=== PATIENT | male | born 1955 | race Caucasian/White ===

== ENCOUNTER 2018-06-26 05:23 | Inpatient (IN) ==
[2018-06-26] MEDS ORDERED: ceFAZolin 1,000 MG VIAL ONE (05:53)
[2018-06-26] MEDS ORDERED: VANCOMYCIN 1,000 MG VIAL ONE (05:53)
[2018-06-26] MEDS ORDERED: GABAPENTIN 400 MG CAPSULE PO ONE (06:19)
[2018-06-26] MEDS ORDERED: ACETAMINOPHEN 500 MG TABLET PO ONE (06:19)
[2018-06-26] MEDS ORDERED: ROPIVACAINE 0.5% 30 ML VIAL ONE ×2 (06:27→09:45)
[2018-06-26] MEDS ORDERED: BUPIVACAINE SPINAL 0.75% 2 ML AMP SPINAL ONE (06:27)
[2018-06-26] MEDS ORDERED: ceFAZolin 1,000 MG in SYRINGE 1 EACH IV ONE (06:30)
[2018-06-26] MEDS ORDERED: VANCOMYCIN INJ 1,000 MG in SODIUM CHLORIDE 0.9% 250 ML IV ONE (06:30)
[2018-06-26] MEDS: LACTATED RINGERS 1,000 ML IV SCH ×2 (06:35→09:36)
[2018-06-26] MEDS ORDERED: TRANEXAMIC ACID 1,000 MG/10 ML VIAL ONE (06:50)
[2018-06-26] MEDS ORDERED: LACTULOSE 20 GM/30 ML UDCUP PO PRN (07:09)
[2018-06-26] MEDS ORDERED: BISACODYL 10 MG SUPP RECTAL PRN (07:09)
[2018-06-26] MEDS ORDERED: PROMETHAZINE 25 MG/1 ML VIAL IM PRN (07:09)
[2018-06-26] MEDS ORDERED: ONDANSETRON 4 MG/2 ML VIAL IV PRN ×2 (07:09→08:54)
[2018-06-26] MEDS ORDERED: diphenhydrAMINE CAP 25 MG CAPSULE PO PRN (07:09)
[2018-06-26] MEDS ORDERED: TEMAZEPAM 7.5 MG CAPSULE PO PRN (07:09)
[2018-06-26] MEDS ORDERED: MAGNESIUM HYDROXIDE SUSP 30 ML UDCUP PO PRN (07:09)
[2018-06-26] MEDS ORDERED: ALBUTEROL 2.5 MG/3 ML NEB RESP TX PRN (07:12)
[2018-06-26] MEDS ORDERED: PROPOFOL 200 MG/20 ML VIAL IV ONE (08:51)
[2018-06-26] MEDS ORDERED: ePHEDrine 50 MG/ML AMP ONE (08:52)
[2018-06-26] MEDS ORDERED: KETOROLAC 30 MG/1 ML VIAL ONE (08:52)
[2018-06-26] MEDS ORDERED: ONDANSETRON 4 MG/2 ML VIAL ONE (08:52)
[2018-06-26] MEDS ORDERED: DEXAMETHASONE 4 MG/1 ML VIAL ONE ×2 (08:52→09:45)
[2018-06-26] MEDS ORDERED: SUFentanil 50 MCG/ML AMP ONE (08:52)
[2018-06-26] MEDS ORDERED: KETAMINE 500 MG/10 ML VIAL ONE (08:52)
[2018-06-26] MEDS ORDERED: NEOSTIGMINE 10 MG/10 ML VIAL ONE (08:53)
[2018-06-26] MEDS ORDERED: GLYCOPYRROLATE 0.4 MG/2 ML VIAL ONE (08:53)
[2018-06-26] MEDS ORDERED: ROCURONIUM 100 MG/10 ML VIAL IV ONE (08:53)
[2018-06-26] MEDS ORDERED: ETOMIDATE 40 MG/20 ML VIAL IV ONE (08:53)
[2018-06-26] MEDS ORDERED: SEVOFLURANE 1 UNIT/15 MINUTE INH ONE (08:53)
[2018-06-26] MEDS ORDERED: SODIUM CHLORIDE 0.9% 100 ML IV ONE (08:53)
[2018-06-26] MEDS: HYDROmorphone 2 MG/1 ML VIAL IV PRN ×4 (09:00→09:23)
[2018-06-26] MEDS ORDERED: FLUTICASONE UMECLIDIN VILANTER INH SCH (09:00)
[2018-06-26] MEDS: MORPHINE 4 MG/1 ML VIAL IV PRN ×3 (11:24→22:18)
[2018-06-26] MEDS: APIXABAN 5 MG TABLET PO SCH ×3 (13:42→21:20)
[2018-06-26] MEDS: DOCUSATE SODIUM 100 MG CAPSULE PO SCH ×2 (13:42→21:20)
[2018-06-26] MEDS: NICOTINE 21 MG/24 HR PATCH TRANSDERM SCH (13:53)
[2018-06-26] MEDS: BUDESONIDE/FORMOTEROL 160-4.5 INHALER 6 GM INH SCH ×2 (14:30→21:30)
[2018-06-26] MEDS: ceFAZolin 2,000 MG in PREMIX 1 EACH IV SCH ×2 (15:49→22:18)
[2018-06-26] MEDS ORDERED: PANTOPRAZOLE 40 MG VIAL IV PRN (17:21)
[2018-06-26] MEDS ORDERED: ALUMINUM/MAGNES/SIMETH MAX STR 30 ML UDCUP PO PRN (17:25)
[2018-06-26] MEDS: GABAPENTIN 400 MG CAPSULE PO SCH (21:19)
[2018-06-26] MEDS: ROSUVASTATIN 20 MG TABLET PO SCH (21:28)
[2018-06-27] MEDS: MORPHINE 4 MG/1 ML VIAL IV PRN ×5 (05:14→20:22)
[2018-06-27 05:58] LABS: Basophils % 0.1 % (0.0-0.8); Hematocrit 32.5 VOL% (42.0-52.0); Hemoglobin 11.1 GM/DL (14.0-18.0); Immature Granulocytes % 0.6 %; Immature Granulocytes Absolute 0.09 #; Lymphocytes # 1.2 10*3/uL (1.4-4.0); Mean Corpuscular HGB Conc 34.2 GM/DL (32-36); Mean Corpuscular Volume 100.3 FL (87-102); Mean Platelet Volume 11.1 FL (9.6-12.0); Monocytes % 5.5 % (1.7-12.7); Neutrophils % 85.8 % (38.7-73.9); Platelet Count 126 T/CUMM (130-400); Red Blood Count 3.24 MC/CUMM (3.8-5.5); Red Cell Distribution Width 13.2 % (9.3-17.3); White Blood Count 15.6 T/CUMM (4-12)
[2018-06-27 06:20] LABS: Calcium 8.5 MG/DL (8.5-10.1); Osmolality,Calculated 279.7 MOS/KG (273-304)
[2018-06-27] MEDS: NICOTINE 21 MG/24 HR PATCH TRANSDERM SCH (08:29)
[2018-06-27] MEDS: DOCUSATE SODIUM 100 MG CAPSULE PO SCH ×2 (08:31→20:17)
[2018-06-27] MEDS: APIXABAN 5 MG TABLET PO SCH ×2 (08:31→20:18)
[2018-06-27] MEDS: BUDESONIDE/FORMOTEROL 160-4.5 INHALER 6 GM INH SCH ×2 (08:43→23:08)
[2018-06-27] MEDS: GABAPENTIN 400 MG CAPSULE PO SCH (20:17)
[2018-06-27] MEDS: ROSUVASTATIN 20 MG TABLET PO SCH (20:18)
[2018-06-28] MEDS: MORPHINE 4 MG/1 ML VIAL IV PRN ×6 (00:36→21:58)
[2018-06-28] MEDS: NICOTINE 21 MG/24 HR PATCH TRANSDERM SCH (09:38)
[2018-06-28] MEDS: DOCUSATE SODIUM 100 MG CAPSULE PO SCH ×2 (09:39→21:41)
[2018-06-28] MEDS: APIXABAN 5 MG TABLET PO SCH ×2 (09:39→21:42)
[2018-06-28] MEDS: BUDESONIDE/FORMOTEROL 160-4.5 INHALER 6 GM INH SCH ×2 (09:45→21:44)
[2018-06-28] MEDS: ROSUVASTATIN 20 MG TABLET PO SCH (21:40)
[2018-06-28] MEDS: GABAPENTIN 400 MG CAPSULE PO SCH (21:41)
[2018-06-29] MEDS: DOCUSATE SODIUM 100 MG CAPSULE PO SCH (09:18)
[2018-06-29] MEDS: APIXABAN 5 MG TABLET PO SCH (09:18)
[2018-06-29] MEDS: NICOTINE 21 MG/24 HR PATCH TRANSDERM SCH (09:18)
[2018-06-29] MEDS: BUDESONIDE/FORMOTEROL 160-4.5 INHALER 6 GM INH SCH (09:19)
[2018-06-29 11:50] VITALS: BP 162/84
== END 2018-06-29 13:20 | disposition home or self-care (01) | DRG 302 ==
LOC: N.OR 05:23 → N.SDSINP 05:24 → N.3E 10:24
PROVIDERS: ADMIT Orthopaedic Surgery; ATTEND Orthopaedic Surgery

== ENCOUNTER 2020-09-06 14:39 | Inpatient (IN) ==
[2020-09-06 15:41] LABS: Basophils # 0.1 10*3/uL (0.0-0.2); Basophils % 0.5 % (0.0-0.8); Eosinophils # 0.5 10*3/uL (0.0-0.87); Eosinophils % 4.2 % (0.00-10.9); Hematocrit 40.8 VOL% (42.0-52.0); Hemoglobin 14.1 GM/DL (14.0-18.0); Immature Granulocytes % 0.4 %; Immature Granulocytes Absolute 0.04 #; Lymphocytes # 2.2 10*3/uL (1.4-4.0); Lymphocytes % 20.3 % (21.2-54.2); Mean Corpuscular HGB Conc 34.6 GM/DL (32-36); Mean Corpuscular Volume 98.1 FL (87-102); Mean Platelet Volume 10.8 FL (9.6-12.0); Monocytes % 6.6 % (1.7-12.7); Platelet Count 200 T/CUMM (130-400); Red Blood Count 4.16 MC/CUMM (3.8-5.5); Red Cell Distribution Width 13.8 % (9.3-17.3)
[2020-09-06 15:46] LABS: Albumin 3.8 G/DL (3.4-5.0); Bilirubin,Total 0.8 MG/DL (0.20-1.00); Calcium 9.7 MG/DL (8.5-10.1); Osmolality,Calculated 275.1 MOS/KG (273-304); Total Protein 8.1 G/DL (6.4-8.2)
[2020-09-06] MEDS ORDERED: ONDANSETRON 4 MG/2 ML VIAL IV STA (15:49)
[2020-09-06] MEDS ORDERED: HYDROmorphone 2 MG/1 ML VIAL IV STA (15:49)
[2020-09-06 16:31] LABS: Bilirubin,Urine Negative (Negative); Blood, Urine Negative (Negative); Glucose,Urine (UA) Negative (Negative); Hyaline Casts,Urine 1 /LPF (0-3); Ketones,Urine Negative (Negative); Mucus,Urine Occasional /LPF (Occasional); Nitrite,Urine Negative (Negative); Protein,Urine Negative; RBC,Urine 1 /HPF (0-4); Urine Appearance CLEAR (Clear); Urine Color Yellow (Yellow); Urine Specific Gravity 1.023 (1.001-1.035)
[2020-09-06] MEDS ORDERED: GLUCAGON 1 MG VIAL IM PRN (17:08)
[2020-09-06] MEDS ORDERED: guaiFENesin/DM ER 600-30 MG TABLET PO PRN (17:08)
[2020-09-06] MEDS ORDERED: DEXTROSE 50% 25 GM/50 ML VIAL IV PRN (17:08)
[2020-09-06] MEDS ORDERED: DOCUSATE SODIUM 100 MG CAPSULE PO PRN (17:08)
[2020-09-06] MEDS ORDERED: ACETAMINOPHEN 325 MG TABLET PO PRN (17:08)
[2020-09-06] MEDS ORDERED: ALBUTEROL 2.5 MG/3 ML NEB RESP TX PRN (17:08)
[2020-09-06] MEDS ORDERED: hydrALAZINE 20 MG/1 ML VIAL IV PRN (17:08)
[2020-09-06] MEDS ORDERED: NICOTINE 21 MG/24 HR PATCH TRANSDERM PRN (17:17)
[2020-09-06] MEDS: SODIUM CHLORIDE 0.9% 1,000 ML IV SCH (18:00)
[2020-09-06] MEDS: HYDROmorphone 2 MG/1 ML VIAL IV PRN ×2 (18:00→23:00)
[2020-09-06] MEDS: ONDANSETRON 4 MG/2 ML VIAL IV PRN (19:00)
[2020-09-06] MEDS: GABAPENTIN 400 MG CAPSULE PO PRN (20:46)
[2020-09-06] MEDS: TAMSULOSIN 0.4 MG CAPSULE PO SCH (20:46)
[2020-09-06] MEDS: ENOXAPARIN 40 MG/0.4 ML SYRINGE SUBCUT SCH (20:47)
[2020-09-07 05:08] LABS: Basophils # 0.1 10*3/uL (0.0-0.2); Basophils % 0.7 % (0.0-0.8); Eosinophils # 0.6 10*3/uL (0.0-0.87); Hematocrit 38.1 VOL% (42.0-52.0); Hemoglobin 13.2 GM/DL (14.0-18.0); Immature Granulocytes % 0.5 %; Immature Granulocytes Absolute 0.04 #; Lymphocytes # 2.1 10*3/uL (1.4-4.0); Lymphocytes % 24.6 % (21.2-54.2); Mean Corpuscular HGB Conc 34.6 GM/DL (32-36); Mean Corpuscular Volume 99.2 FL (87-102); Mean Platelet Volume 10.7 FL (9.6-12.0); Monocytes % 9.3 % (1.7-12.7); Neutrophils % 57.9 % (38.7-73.9); Platelet Count 173 T/CUMM (130-400); Red Blood Count 3.84 MC/CUMM (3.8-5.5); Red Cell Distribution Width 13.8 % (9.3-17.3); White Blood Count 8.7 T/CUMM (4-12)
[2020-09-07 05:44] LABS: Calcium 9.1 MG/DL (8.5-10.1); Osmolality,Calculated 275.1 MOS/KG (273-304); Potassium 4.1 MMOL/L (3.5-5.1); Risk Ratio 5.66; Thyroid Stimulating Hormone 4.65 uIU/ml (0.358-3.74); VLDL Cholesterol 26.6 MG/DL
[2020-09-07] MEDS: buPROPion XL 150 MG TABLET PO SCH (09:39)
[2020-09-07] MEDS: GABAPENTIN 400 MG CAPSULE PO PRN ×2 (09:39→18:35)
[2020-09-07] MEDS: Fluticasone-Umeclidin-Vilanter [Trelegy Ellipta] 100-62.5-25 mcg INH SCH (09:39)
[2020-09-07] MEDS: TAMSULOSIN 0.4 MG CAPSULE PO SCH ×2 (09:39→21:39)
[2020-09-07] MEDS: PANTOPRAZOLE 40 MG TABLET PO SCH (09:39)
[2020-09-07] MEDS: SODIUM CHLORIDE 0.9% 1,000 ML IV SCH ×2 (09:40→22:51)
[2020-09-07] MEDS: oxyCODONE/ACETAMINOPHEN 5-325 MG TABLET PO PRN ×2 (09:40→18:35)
[2020-09-07] MEDS: ENOXAPARIN 40 MG/0.4 ML SYRINGE SUBCUT SCH (20:51)
[2020-09-08] MEDS: HYDROmorphone 2 MG/1 ML VIAL IV PRN ×2 (04:09→21:17)
[2020-09-08 05:57] LABS: Basophils # 0.1 10*3/uL (0.0-0.2); Basophils % 0.7 % (0.0-0.8); Eosinophils # 0.6 10*3/uL (0.0-0.87); Eosinophils % 8.8 % (0.00-10.9); Hematocrit 35.2 VOL% (42.0-52.0); Hemoglobin 12.3 GM/DL (14.0-18.0); Immature Granulocytes % 0.4 %; Immature Granulocytes Absolute 0.03 #; Lymphocytes # 1.8 10*3/uL (1.4-4.0); Mean Corpuscular HGB Conc 34.9 GM/DL (32-36); Mean Corpuscular Volume 99.4 FL (87-102); Monocytes % 8.6 % (1.7-12.7); Neutrophils % 56.5 % (38.7-73.9); Platelet Count 177 T/CUMM (130-400); Red Blood Count 3.54 MC/CUMM (3.8-5.5); Red Cell Distribution Width 13.6 % (9.3-17.3); White Blood Count 7.2 T/CUMM (4-12)
[2020-09-08 06:30] LABS: Calcium 8.9 MG/DL (8.5-10.1); Osmolality,Calculated 279.8 MOS/KG (273-304); Potassium 4.1 MMOL/L (3.5-5.1)
[2020-09-08] MEDS: ONDANSETRON 4 MG/2 ML VIAL IV PRN (06:42)
[2020-09-08 07:01] LABS: Free T4 (Free Thyroxine) 1.36 NG/DL (0.76-1.46)
[2020-09-08] MEDS: PANTOPRAZOLE 40 MG TABLET PO SCH (09:49)
[2020-09-08] MEDS: TAMSULOSIN 0.4 MG CAPSULE PO SCH ×2 (09:49→21:16)
[2020-09-08] MEDS: oxyCODONE/ACETAMINOPHEN 5-325 MG TABLET PO PRN ×2 (09:49→15:10)
[2020-09-08] MEDS: GABAPENTIN 400 MG CAPSULE PO PRN ×3 (09:49→21:16)
[2020-09-08] MEDS: buPROPion XL 150 MG TABLET PO SCH (09:49)
[2020-09-08] MEDS: Fluticasone-Umeclidin-Vilanter [Trelegy Ellipta] 100-62.5-25 mcg INH SCH (09:51)
[2020-09-08] MEDS: SODIUM CHLORIDE 0.9% 1,000 ML IV SCH (09:51)
[2020-09-09] MEDS: SODIUM CHLORIDE 0.9% 1,000 ML IV SCH ×2 (00:30→16:00)
[2020-09-09 07:07] LABS: Basophils % 0.5 % (0.0-0.8); Eosinophils # 0.6 10*3/uL (0.0-0.87); Eosinophils % 7.7 % (0.00-10.9); Hematocrit 33.5 VOL% (42.0-52.0); Hemoglobin 11.7 GM/DL (14.0-18.0); Immature Granulocytes % 0.3 %; Immature Granulocytes Absolute 0.02 #; Lymphocytes # 2.1 10*3/uL (1.4-4.0); Lymphocytes % 27.1 % (21.2-54.2); Mean Corpuscular HGB Conc 34.9 GM/DL (32-36); Mean Platelet Volume 10.5 FL (9.6-12.0); Monocytes % 7.5 % (1.7-12.7); Neutrophils % 56.9 % (38.7-73.9); Platelet Count 187 T/CUMM (130-400); Red Blood Count 3.35 MC/CUMM (3.8-5.5); Red Cell Distribution Width 13.9 % (9.3-17.3); White Blood Count 7.9 T/CUMM (4-12)
[2020-09-09 07:33] LABS: Calcium 8.8 MG/DL (8.5-10.1); Osmolality,Calculated 283.4 MOS/KG (273-304); Potassium 4.2 MMOL/L (3.5-5.1)
[2020-09-09] MEDS: GABAPENTIN 400 MG CAPSULE PO PRN ×2 (09:18→20:55)
[2020-09-09] MEDS: PANTOPRAZOLE 40 MG TABLET PO SCH (09:18)
[2020-09-09] MEDS: TAMSULOSIN 0.4 MG CAPSULE PO SCH ×2 (09:18→20:55)
[2020-09-09] MEDS: buPROPion XL 150 MG TABLET PO SCH (09:18)
[2020-09-09] MEDS: Fluticasone-Umeclidin-Vilanter [Trelegy Ellipta] 100-62.5-25 mcg INH SCH (09:41)
[2020-09-09] MEDS: oxyCODONE/ACETAMINOPHEN 5-325 MG TABLET PO PRN ×2 (10:23→20:56)
[2020-09-10] MEDS: oxyCODONE/ACETAMINOPHEN 5-325 MG TABLET PO PRN ×3 (02:34→12:10)
[2020-09-10 06:19] LABS: Basophils # 0.1 10*3/uL (0.0-0.2); Basophils % 0.6 % (0.0-0.8); Eosinophils # 0.6 10*3/uL (0.0-0.87); Eosinophils % 8.2 % (0.00-10.9); Hematocrit 32.2 VOL% (42.0-52.0); Hemoglobin 11.2 GM/DL (14.0-18.0); Immature Granulocytes % 0.3 %; Immature Granulocytes Absolute 0.02 #; Lymphocytes # 2.4 10*3/uL (1.4-4.0); Lymphocytes % 30.4 % (21.2-54.2); Mean Corpuscular HGB Conc 34.8 GM/DL (32-36); Mean Corpuscular Volume 99.4 FL (87-102); Mean Platelet Volume 10.9 FL (9.6-12.0); Monocytes % 7.4 % (1.7-12.7); Neutrophils % 53.1 % (38.7-73.9); Platelet Count 199 T/CUMM (130-400); Red Blood Count 3.24 MC/CUMM (3.8-5.5); Red Cell Distribution Width 13.9 % (9.3-17.3); White Blood Count 7.8 T/CUMM (4-12)
[2020-09-10 06:46] LABS: Calcium 8.8 MG/DL (8.5-10.1); Osmolality,Calculated 280.7 MOS/KG (273-304); Potassium 3.9 MMOL/L (3.5-5.1)
[2020-09-10] MEDS: APIXABAN 2.5 MG TABLET PO SCH ×2 (07:08→09:07)
[2020-09-10] MEDS: buPROPion XL 150 MG TABLET PO SCH (09:07)
[2020-09-10] MEDS: TAMSULOSIN 0.4 MG CAPSULE PO SCH (09:07)
[2020-09-10] MEDS: PANTOPRAZOLE 40 MG TABLET PO SCH (09:07)
[2020-09-10] MEDS: Fluticasone-Umeclidin-Vilanter [Trelegy Ellipta] 100-62.5-25 mcg INH SCH (09:08)
[2020-09-10 09:43] VITALS: BP 140/69
[2020-09-10] MEDS: SODIUM CHLORIDE 0.9% 1,000 ML IV SCH ×2 (13:00→15:06)
== END 2020-09-10 15:00 | disposition home or self-care (01) | DRG 815 ==
LOC: EDUNIT# → EDBD → N.ED 14:39 → N.EDINP 17:08 → N.4E 18:15
PROVIDERS: ADMIT Internal Medicine; ATTEND Internal Medicine

== ENCOUNTER 2020-10-08 10:50 | Observation (INO) ==
[2020-10-08 11:39] LABS: Basophils # 0.1 10*3/uL (0.0-0.2); Basophils % 0.6 % (0.0-0.8); Eosinophils # 0.5 10*3/uL (0.0-0.87); Eosinophils % 5.4 % (0.00-10.9); Hematocrit 38.7 VOL% (42.0-52.0); Hemoglobin 13.1 GM/DL (14.0-18.0); Immature Granulocytes % 0.2 %; Immature Granulocytes Absolute 0.02 #; Lymphocytes # 2.8 10*3/uL (1.4-4.0); Lymphocytes % 33.1 % (21.2-54.2); Mean Corpuscular HGB Conc 33.9 GM/DL (32-36); Mean Corpuscular Volume 100.3 FL (87-102); Mean Platelet Volume 10.7 FL (9.6-12.0); Monocytes % 6.8 % (1.7-12.7); Neutrophils % 53.9 % (38.7-73.9); Platelet Count 157 T/CUMM (130-400); Red Blood Count 3.86 MC/CUMM (3.8-5.5); Red Cell Distribution Width 14.3 % (9.3-17.3); White Blood Count 8.6 T/CUMM (4-12)
[2020-10-08 11:47] LABS: PT Patient Result 11.4 SECS (10.5-12.0)
[2020-10-08 12:18] LABS: Alanine Aminotransferase 19 U/L (16-61); Albumin 3.9 G/DL (3.4-5.0); Alkaline Phosphatase 78 U/L (45-117); Aspartate Amino Transferase 16 U/L (0-37); Blood Urea Nitrogen 17 MG/DL (7-18); Calcium 8.6 MG/DL (8.5-10.1); Carbon Dioxide 25 MMOL/L (21-32); Estimated Glom Filtration Rate 63 ML/MIN; Glucose 104 MG/DL (74-106); Osmolality,Calculated 278.5 MOS/KG (273-304); Potassium 4.3 MMOL/L (3.5-5.1); Sodium 139 MMOL/L (136-145); Total Protein 7.1 G/DL (6.4-8.2)
[2020-10-08 13:05] LABS: Barbiturates Screen,Urine Negative (Negative); Benzodiazepines Screen,Urine Negative (Negative); Cannabinoid Screen,Urine Positive (Negative); Opiate Screen,Urine Negative (Negative); Phencyclidine Screen,Urine Negative (Negative)
[2020-10-08] MEDS ORDERED: BUTALBITAL/ACETAMIN/CAFFEINE 50-325-40 MG TABLET PO PRN (13:21)
[2020-10-08] MEDS ORDERED: hydrALAZINE 20 MG/1 ML VIAL IV PRN (13:24)
[2020-10-08] MEDS ORDERED: MORPHINE 2 MG/1 ML SYRINGE IV PRN (13:24)
[2020-10-08] MEDS ORDERED: ACETAMINOPHEN 325 MG TABLET PO PRN (13:24)
[2020-10-08] MEDS ORDERED: DEXTROSE 50% 25 GM/50 ML VIAL IV PRN (13:24)
[2020-10-08] MEDS ORDERED: ONDANSETRON 4 MG/2 ML VIAL IV PRN (13:24)
[2020-10-08] MEDS ORDERED: GLUCAGON 1 MG VIAL IM PRN (13:24)
[2020-10-08] MEDS ORDERED: ENOXAPARIN 40 MG/0.4 ML SYRINGE SUBCUT SCH (13:30)
[2020-10-08] MEDS ORDERED: NITROGLYCERIN SL 0.4 MG TABLET SL PRN (13:51)
[2020-10-08] MEDS ORDERED: lisinopriL 2.5 MG TABLET PO SCH (14:00)
[2020-10-08 14:45] LABS: Risk Ratio 8.27; Thyroid Stimulating Hormone 1.25 uIU/ml (0.358-3.74); VLDL Cholesterol 76.4 MG/DL
[2020-10-08] MEDS: oxyCODONE/ACETAMINOPHEN 5-325 MG TABLET PO PRN ×2 (14:57→20:26)
[2020-10-08] MEDS ORDERED: ALBUTEROL 2.5 MG/3 ML NEB RESP TX PRN (15:00)
[2020-10-08] MEDS ORDERED: GABAPENTIN 400 MG CAPSULE PO PRN (16:04)
[2020-10-08] MEDS: APIXABAN 2.5 MG TABLET PO SCH (20:25)
[2020-10-08] MEDS: AMITRIPTYLINE 25 MG TABLET PO SCH (20:25)
[2020-10-08] MEDS: TAMSULOSIN 0.4 MG CAPSULE PO SCH (20:25)
[2020-10-09 05:50] LABS: Basophils # 0.1 10*3/uL (0.0-0.2); Basophils % 0.7 % (0.0-0.8); Eosinophils # 0.5 10*3/uL (0.0-0.87); Eosinophils % 6.8 % (0.00-10.9); Hemoglobin 12.3 GM/DL (14.0-18.0); Immature Granulocytes % 0.1 %; Immature Granulocytes Absolute 0.01 #; Lymphocytes # 2.9 10*3/uL (1.4-4.0); Mean Corpuscular HGB Conc 33.2 GM/DL (32-36); Mean Corpuscular Volume 101.1 FL (87-102); Mean Platelet Volume 10.6 FL (9.6-12.0); Monocytes % 7.1 % (1.7-12.7); Neutrophils % 46.3 % (38.7-73.9); Platelet Count 156 T/CUMM (130-400); Red Blood Count 3.66 MC/CUMM (3.8-5.5); Red Cell Distribution Width 14.4 % (9.3-17.3); White Blood Count 7.3 T/CUMM (4-12)
[2020-10-09 06:12] LABS: Hypochromasia Slight; Microcytosis Slight; Platelet Estimate Adequate
[2020-10-09 06:17] LABS: Albumin 3.4 G/DL (3.4-5.0); Bilirubin,Total 0.4 MG/DL (0.20-1.00); Calcium 8.9 MG/DL (8.5-10.1); Osmolality,Calculated 277.7 MOS/KG (273-304); Total Protein 6.8 G/DL (6.4-8.2)
[2020-10-09] MEDS ORDERED: SODIUM CHLORIDE 0.45% 1,000 ML IV SCH (07:30)
[2020-10-09] MEDS ORDERED: ROSUVASTATIN 10 MG TABLET PO SCH (09:00)
[2020-10-09] MEDS ORDERED: PANTOPRAZOLE 40 MG TABLET PO SCH (09:00)
[2020-10-09] MEDS ORDERED: ASPIRIN CHEW 81 MG TABLET PO SCH (09:00)
[2020-10-09] MEDS ORDERED: buPROPion XL 150 MG TABLET PO SCH (09:00)
[2020-10-09] MEDS: TAMSULOSIN 0.4 MG CAPSULE PO SCH (09:33)
[2020-10-09] MEDS: AMITRIPTYLINE 25 MG TABLET PO SCH (09:33)
[2020-10-09] MEDS: APIXABAN 2.5 MG TABLET PO SCH (09:33)
[2020-10-09] MEDS: oxyCODONE/ACETAMINOPHEN 5-325 MG TABLET PO PRN (09:34)
[2020-10-09 11:42] VITALS: BP 122/68
== END 2020-10-09 14:40 | disposition home or self-care (01) ==
LOC: N.EDINP 10:50 → N.ED 10:50 → N.TELES 15:37
PROVIDERS: ADMIT Internal Medicine; ATTEND Internal Medicine

== ENCOUNTER 2022-04-05 22:28 | Inpatient (IN) ==
[2022-04-05] MEDS ORDERED: ALBUTEROL NEB SOLN 5 MG/ML 20 ML/BOTTLE CONT NEB SCH (23:00)
[2022-04-05] MEDS ORDERED: methylPREDNISolone SOD SUC 125 MG/2 ML VIAL IV STA (23:00)
[2022-04-05] MEDS ORDERED: ALBUTEROL/IPRATROPIUM 3 ML NEB RESP TX STA (23:00)
[2022-04-05 23:09] LABS: Basophils % 0.4 % (0.0-0.8); Eosinophils # 0.3 10*3/uL (0.0-0.87); Eosinophils % 3.9 % (0.00-10.9); Hematocrit 37.4 VOL% (42.0-52.0); Hemoglobin 13.7 GM/DL (14.0-18.0); Immature Granulocytes % 0.1 %; Immature Granulocytes Absolute 0.01 #; Lymphocytes # 3.7 10*3/uL (1.4-4.0); Lymphocytes % 50.5 % (21.2-54.2); Mean Corpuscular HGB Conc 36.6 GM/DL (32-36); Mean Corpuscular Volume 91.2 FL (87-102); Mean Platelet Volume 10.8 FL (9.6-12.0); Monocytes # 0.6 10*3/uL (0.11-0.8); Monocytes % 8.2 % (1.7-12.7); Neutrophils % 36.9 % (38.7-73.9); Platelet Count 145 T/CUMM (130-400); Red Cell Distribution Width 13.2 % (9.3-17.3); White Blood Count 7.23 T/CUMM (4-12)
[2022-04-05] MEDS ORDERED: ALBUTEROL 2.5 MG/3 ML NEB RESP TX ONE (23:25)
[2022-04-05 23:39] LABS: Albumin 3.7 G/DL (3.4-5.0); Bilirubin,Total 0.5 MG/DL (0.20-1.00); Calcium 8.7 MG/DL (8.5-10.1); Potassium 3.6 MMOL/L (3.5-5.1)
[2022-04-06 00:06] LABS: Eosinophils 5 % (0-10); Lymphocytes 43 % (20-55); Platelet Estimate Decreased; Total Cells Counted 100
[2022-04-06] MEDS ORDERED: ACETAMINOPHEN 325 MG TABLET PO PRN (02:09)
[2022-04-06] MEDS ORDERED: ONDANSETRON 4 MG/2 ML VIAL IV PRN (02:09)
[2022-04-06] MEDS: cefTRIAXone 2,000 MG in SODIUM CHLORIDE 0.9% 100 ML IV SCH (03:10)
[2022-04-06] MEDS: GABAPENTIN 400 MG CAPSULE PO PRN ×2 (05:40→21:34)
[2022-04-06] MEDS: methylPREDNISolone SOD SUC 40 MG/1 ML VIAL IV SCH ×3 (06:13→21:34)
[2022-04-06 06:54] LABS: Basophils % 0.2 % (0.0-0.8); Hematocrit 35.9 VOL% (42.0-52.0); Hemoglobin 12.9 GM/DL (14.0-18.0); Immature Granulocytes % 0.2 %; Immature Granulocytes Absolute 0.01 #; Lymphocytes # 1.1 10*3/uL (1.4-4.0); Lymphocytes % 22.8 % (21.2-54.2); Mean Corpuscular HGB Conc 35.9 GM/DL (32-36); Mean Corpuscular Volume 92.8 FL (87-102); Mean Platelet Volume 10.7 FL (9.6-12.0); Monocytes # 0.1 10*3/uL (0.11-0.8); Monocytes % 1.7 % (1.7-12.7); Neutrophils % 75.1 % (38.7-73.9); Platelet Count 143 T/CUMM (130-400); Red Blood Count 3.87 MC/CUMM (3.8-5.5); Red Cell Distribution Width 13.3 % (9.3-17.3); White Blood Count 4.64 T/CUMM (4-12)
[2022-04-06 07:15] LABS: Albumin 3.4 G/DL (3.4-5.0); Bilirubin,Total 0.4 MG/DL (0.20-1.00); Osmolality,Calculated 286.1 MOS/KG (273-304); Potassium 3.7 MMOL/L (3.5-5.1); Total Protein 7.5 G/DL (6.4-8.2)
[2022-04-06] MEDS: ALBUTEROL/IPRATROPIUM 3 ML NEB RESP TX SCH ×3 (07:25→19:32)
[2022-04-06] MEDS: APIXABAN 5 MG TABLET PO SCH ×2 (10:28→21:34)
[2022-04-06] MEDS: PANTOPRAZOLE 40 MG TABLET PO SCH (10:28)
[2022-04-06] MEDS ORDERED: SILDENAFIL 20 MG TABLET PO PRN (11:59)
[2022-04-06] MEDS: BUDESONIDE/FORMOTEROL 160-4.5 INHALER 6 GM INH SCH ×2 (12:02→21:33)
[2022-04-07] MEDS: ALBUTEROL/IPRATROPIUM 3 ML NEB RESP TX SCH ×4 (01:00→20:22)
[2022-04-07] MEDS: cefTRIAXone 2,000 MG in SODIUM CHLORIDE 0.9% 100 ML IV SCH (02:32)
[2022-04-07] MEDS: methylPREDNISolone SOD SUC 40 MG/1 ML VIAL IV SCH ×2 (05:21→14:45)
[2022-04-07] MEDS: APIXABAN 5 MG TABLET PO SCH ×2 (09:35→22:09)
[2022-04-07] MEDS: TAMSULOSIN 0.4 MG CAPSULE PO SCH (09:36)
[2022-04-07] MEDS: PANTOPRAZOLE 40 MG TABLET PO SCH (09:40)
[2022-04-07] MEDS: GABAPENTIN 400 MG CAPSULE PO PRN (10:24)
[2022-04-07] MEDS: BUDESONIDE/FORMOTEROL 160-4.5 INHALER 6 GM INH SCH ×2 (10:27→22:09)
[2022-04-08] MEDS: methylPREDNISolone SOD SUC 40 MG/1 ML VIAL IV SCH ×2 (00:18→09:09)
[2022-04-08] MEDS: ALBUTEROL/IPRATROPIUM 3 ML NEB RESP TX SCH ×2 (01:30→07:40)
[2022-04-08] MEDS: cefTRIAXone 2,000 MG in SODIUM CHLORIDE 0.9% 100 ML IV SCH (02:40)
[2022-04-08] MEDS: GABAPENTIN 400 MG CAPSULE PO PRN (09:08)
[2022-04-08] MEDS: TAMSULOSIN 0.4 MG CAPSULE PO SCH (10:12)
[2022-04-08] MEDS: APIXABAN 5 MG TABLET PO SCH (10:12)
[2022-04-08] MEDS: BUDESONIDE/FORMOTEROL 160-4.5 INHALER 6 GM INH SCH (10:12)
[2022-04-08] MEDS: PANTOPRAZOLE 40 MG TABLET PO SCH (10:13)
[2022-04-08 12:11] VITALS: BP 150/65
== END 2022-04-08 12:42 | disposition home or self-care (01) | DRG 191 ==
LOC: N.ED 22:28 → N.EDINP 04-06 02:09 → N.3E 04-06 09:33
PROVIDERS: ADMIT Internal Medicine; ATTEND Internal Medicine